=== PATIENT | male | born 1995 | race Hispanic/Latino ===

== ENCOUNTER 2023-01-29 13:56 | Inpatient (IN) | payer OTHER ==
[~2023-01-29] VITALS: Ht 180.3 cm; Wt 119.5 kg
[2023-01-29] MEDS ORDERED: CEFTRIAXONE 500MG VIAL IM SCH (14:30)
[2023-01-29] MEDS ORDERED: DOXYCYCLINE HYCLATE 100 MG TABLET PO SCH (14:30)
[2023-01-29] MEDS ORDERED: ACETAMINOPHEN 500 MG TABLET PO ONE (14:30)
[2023-01-29] MEDS ORDERED: 0.9%NACL 1000ML 1,000 ML IV SCH (14:30)
[2023-01-29 14:59] LABS: BASOPHILS % (AUTO) 0.3 % (0.0-5.0); EOSINOPHILS % (AUTO) 0.2 % (0.0-8.0); HEMATOCRIT 45.6 % (42-54); LYMPHOCYTES % (AUTO) 10.7 % (21.0-51.0); MEAN CORPUSCULAR HEMOGLOBIN 28.1 pg (27.0-33.0); MEAN CORPUSCULAR HGB CONC 33.1 g/dL (32.0-36.0); MEAN CORPUSCULAR VOLUME 84.8 fL (79-99); MONOCYTES % (AUTO) 7.4 % (3.0-13.0); NEUTROPHILS % (AUTO) 80.6 % (40.0-77.0); PLATELET COUNT (AUTO) 377 K/uL (130-400); RED BLOOD CELL COUNT(AUTO) 5.38 MIL/uL (4.50-6.20); RED CELL DISTRIBUTION WIDTH 13.1 % (11.0-15.5); WHITE BLOOD COUNT (AUTO) 18.4 K/uL (4.8-10.8)
[2023-01-29] MEDS ORDERED: MORPHINE 4 MG SYG IVP ONE (15:00)
[2023-01-29] MEDS ORDERED: ONDANSETRON ODT 4MG TAB SL ONE (15:00)
[2023-01-29] MEDS ORDERED: KETOROLAC 30MG VIAL (30MG/ML) IVP ONE (15:00)
[2023-01-29 15:10] LABS: CREATININE 1.1 mg/dL (0.5-1.5); POTASSIUM 3.3 mmol/L (3.5-5.1)
[2023-01-29 15:15] LABS: ALBUMIN 3.1 g/dL (3.5-5.0); APPEARANCE,URINE TURBID (CLEAR); BILIRUBIN,URINE NEGATIVE (NEGATIVE); COLOR,URINE YELLOW (YELLOW); GLUCOSE, URINE (UA) NEGATIVE (NEGATIVE); KETONES,URINE 5 mg/dL (NEGATIVE); LEUKOCYTE ESTERASE ,URINE 500 Leu/uL (NEGATIVE); NITRATE,URINE NEGATIVE (NEGATIVE); OCCULT BLOOD,URINE SMALL (NEGATIVE); PROTEIN,URINE 50 mg/dL (NEGATIVE); TOTAL PROTEIN, SERUM 9.2 g/dL (6.0-8.3)
[2023-01-29 15:50] LABS: BACTERIA,URINE FEW /HPF (None Seen); MUCUS,URINE MOD LPF (None Seen); SQUAMOUS EPITHELIAL CELL,UR FEW /HPF (0-2); WBC,URINE 51-100 /HPF (0-1)
[2023-01-29] MEDS ORDERED: [UNRECOGNIZED DRUG - OTHER] IV ONE (16:30)
[2023-01-29 16:51] LABS: INR 1.07 (0.85-1.15); PROTHROMBIN TIME 11.6 SEC (9.6-11.6)
[2023-01-29 16:53] LABS: PARTIAL THROMBOPLASTIN TIME 36.7 SEC (26.3-35.5)
[2023-01-29] MEDS ORDERED: KETOROLAC 15MG/ML VIAL (15MG/ML) IV PRN (17:00)
[2023-01-29] MEDS ORDERED: ACETAMINOPHEN 500 MG TABLET PO PRN (17:00)
[2023-01-29] MEDS ORDERED: ONDANSETRON 4MG INJ IVP PRN (17:00)
[2023-01-29] MEDS ORDERED: CEFTRIAXONE 1G VIAL IVPB SCH (17:00)
[2023-01-29] MEDS ORDERED: MORPHINE 2 MG SYG IVP PRN (17:00)
[2023-01-29] MEDS ORDERED: KCL 20 MEQ ERTAB PO ONE (17:00)
[2023-01-29 17:16] LABS: MAGNESIUM 2.2 mg/dL (1.80-2.40)
[2023-01-29] MEDS: PANTOPRAZOLE 40 MG/VIAL IVP SCH (17:19)
[2023-01-29] MEDS: MEROPENEM 1 GM VIAL IVPB SCH (18:06)
[2023-01-29 18:26] LABS: BASOPHILS % (AUTO) 0.3 % (0.0-5.0); EOSINOPHILS % (AUTO) 0.6 % (0.0-8.0); HEMATOCRIT 37.3 % (42-54); LYMPHOCYTES % (AUTO) 15.7 % (21.0-51.0); MEAN CORPUSCULAR HEMOGLOBIN 28.4 pg (27.0-33.0); MEAN CORPUSCULAR VOLUME 86.1 fL (79-99); MONOCYTES % (AUTO) 11.6 % (3.0-13.0); NEUTROPHILS % (AUTO) 71.2 % (40.0-77.0); PLATELET COUNT (AUTO) 330 K/uL (130-400); RED BLOOD CELL COUNT(AUTO) 4.33 MIL/uL (4.50-6.20); RED CELL DISTRIBUTION WIDTH 13.1 % (11.0-15.5); WHITE BLOOD COUNT (AUTO) 17.9 K/uL (4.8-10.8)
[2023-01-29] MEDS: 0.9%NACL 1000ML 1,000 ML IV SCH (20:05)
[2023-01-29 20:29] LABS: AMPHET/METH SCREEN,URINE NEGATIVE (NEGATIVE); BARBITURATE SCREEN, URINE NEGATIVE (NEGATIVE); BENZODIAZEPINES SCREEN,URINE NEGATIVE (NEGATIVE); CANNABINOID SCREEN,URINE POSITIVE (NEGATIVE); COCAINE SCREEN,URINE POSITIVE (NEGATIVE); OPIATE SCREEN,URINE NEGATIVE (NEGATIVE); PHENCYCLIDINE SCREEN,URINE NEGATIVE (NEGATIVE)
[2023-01-29] MEDS: NAPROXEN 250 MG TAB PO SCH (21:16)
[2023-01-29] MEDS: DOXYCYCLINE HYCLATE 100 MG TABLET PO SCH (21:16)
[2023-01-29 23:10] VITALS: BP 143/82
[2023-01-30] MEDS: MEROPENEM 1 GM VIAL IVPB SCH ×3 (01:16→16:48)
[2023-01-30 04:00] VITALS: BP 116/76
[2023-01-30 07:00] VITALS: BP 100/74
[2023-01-30] MEDS: DOXYCYCLINE HYCLATE 100 MG TABLET PO SCH ×2 (08:26→20:54)
[2023-01-30 08:47] LABS: BASOPHILS % (AUTO) 0.3 % (0.0-5.0); EOSINOPHILS % (AUTO) 1.2 % (0.0-8.0); LYMPHOCYTES % (AUTO) 11.6 % (21.0-51.0); MEAN CORPUSCULAR HEMOGLOBIN 27.9 pg (27.0-33.0); MEAN CORPUSCULAR HGB CONC 31.2 g/dL (32.0-36.0); MEAN CORPUSCULAR VOLUME 89.6 fL (79-99); MONOCYTES % (AUTO) 6.5 % (3.0-13.0); NEUTROPHILS % (AUTO) 79.6 % (40.0-77.0); PLATELET COUNT (AUTO) 307 K/uL (130-400); RED BLOOD CELL COUNT(AUTO) 4.69 MIL/uL (4.50-6.20); RED CELL DISTRIBUTION WIDTH 13.2 % (11.0-15.5); WHITE BLOOD COUNT (AUTO) 15.1 K/uL (4.8-10.8)
[2023-01-30 09:17] LABS: ALBUMIN 2.4 g/dL (3.5-5.0); MAGNESIUM 2.2 mg/dL (1.80-2.40); POTASSIUM 3.8 mmol/L (3.5-5.1); TOTAL PROTEIN, SERUM 7.4 g/dL (6.0-8.3)
[2023-01-30] MEDS: NAPROXEN 250 MG TAB PO SCH ×2 (10:58→20:54)
[2023-01-30 11:00] VITALS: BP 118/76
[2023-01-30 11:49] LABS: RAPID PLASMA REAGIN REACTIVE (NONREACTIVE)
[2023-01-30 12:15] LABS: RAPID PLASMA REAGIN TITER REACTIVE >1:16 (NONREACTIVE)
[2023-01-30 14:15] LABS: HEPATITIS A IGM ANTIBODY Non-Reactive (Nonreactive); HEPATITIS B CORE IGM ANTIBODY Non-Reactive (Negative); HEPATITIS B SURFACE ANTIGEN Non-Reactive (Nonreactive); HEPATITIS C ANTIBODY Non-Reactive (Nonreactive)
[2023-01-30] MEDS: 0.9%NACL 1000ML 1,000 ML IV SCH ×2 (15:58→19:58)
[2023-01-30 16:00] VITALS: BP 104/64
[2023-01-30] MEDS: PANTOPRAZOLE 40 MG/VIAL IVP SCH (16:48)
[2023-01-30 19:37] VITALS: BP 125/77
[2023-01-30 23:55] VITALS: BP 132/59
[2023-01-31] MEDS: MEROPENEM 1 GM VIAL IVPB SCH ×2 (02:08→09:21)
[2023-01-31 03:54] LABS: BASOPHILS % (AUTO) 0.3 % (0.0-5.0); EOSINOPHILS % (AUTO) 3.4 % (0.0-8.0); HEMATOCRIT 36.5 % (42-54); LYMPHOCYTES % (AUTO) 24.9 % (21.0-51.0); MEAN CORPUSCULAR HEMOGLOBIN 27.9 pg (27.0-33.0); MEAN CORPUSCULAR HGB CONC 31.8 g/dL (32.0-36.0); MEAN CORPUSCULAR VOLUME 87.7 fL (79-99); MONOCYTES % (AUTO) 9.1 % (3.0-13.0); NEUTROPHILS % (AUTO) 61.7 % (40.0-77.0); PLATELET COUNT (AUTO) 315 K/uL (130-400); RED BLOOD CELL COUNT(AUTO) 4.16 MIL/uL (4.50-6.20); RED CELL DISTRIBUTION WIDTH 13.2 % (11.0-15.5); WHITE BLOOD COUNT (AUTO) 10.1 K/uL (4.8-10.8)
[2023-01-31 04:33] VITALS: BP 128/63
[2023-01-31 05:03] LABS: POTASSIUM 4.1 mmol/L (3.5-5.1)
[2023-01-31 05:06] LABS: TOTAL PROTEIN, SERUM 6.4 g/dL (6.0-8.3)
[2023-01-31 08:24] VITALS: BP 120/75
[2023-01-31] MEDS: 0.9%NACL 1000ML 1,000 ML IV SCH (08:50)
[2023-01-31] MEDS: DOXYCYCLINE HYCLATE 100 MG TABLET PO SCH ×2 (09:20→21:45)
[2023-01-31] MEDS: NAPROXEN 250 MG TAB PO SCH ×2 (09:21→21:45)
[2023-01-31 12:30] VITALS: BP 124/68
[2023-01-31] MEDS: CEFTRIAXONE 1G VIAL IVPB SCH (15:19)
[2023-01-31 16:09] VITALS: BP 114/77
[2023-01-31] MEDS: PANTOPRAZOLE 40 MG/VIAL IVP SCH (16:29)
[2023-01-31] MEDS ORDERED: 0.9%NACL 10ML VIAL IV SCH (17:00)
[2023-01-31 19:40] VITALS: BP 135/76
[2023-02-01 00:18] VITALS: BP 117/65
[2023-02-01 03:58] LABS: HEMATOCRIT 37.4 % (42-54); MEAN CORPUSCULAR HEMOGLOBIN 27.8 pg (27.0-33.0); MEAN CORPUSCULAR HGB CONC 31.6 g/dL (32.0-36.0); MEAN CORPUSCULAR VOLUME 88.2 fL (79-99); RED BLOOD CELL COUNT(AUTO) 4.24 MIL/uL (4.50-6.20); RED CELL DISTRIBUTION WIDTH 13.2 % (11.0-15.5); WHITE BLOOD COUNT (AUTO) 8.9 K/uL (4.8-10.8)
[2023-02-01 04:21] LABS: ALBUMIN 2.1 g/dL (3.5-5.0); POTASSIUM 3.8 mmol/L (3.5-5.1); TOTAL PROTEIN, SERUM 6.6 g/dL (6.0-8.3)
[2023-02-01 04:55] VITALS: BP 109/52
[2023-02-01] MEDS: NAPROXEN 250 MG TAB PO SCH ×2 (08:13→20:12)
[2023-02-01] MEDS: DOXYCYCLINE HYCLATE 100 MG TABLET PO SCH ×2 (08:13→20:12)
[2023-02-01 08:41] VITALS: BP 114/77
[2023-02-01 12:33] VITALS: BP 126/75
[2023-02-01] MEDS: CEFTRIAXONE 1G VIAL IVPB SCH (14:54)
[2023-02-01 16:50] VITALS: BP 113/84
[2023-02-01] MEDS: PANTOPRAZOLE 40 MG/VIAL IVP SCH (17:14)
[2023-02-01 19:52] VITALS: BP 142/84
[2023-02-01] MEDS: HEPARIN 5,000 UNIT VIAL SQ SCH (20:18)
[2023-02-02 00:06] VITALS: BP 114/67
[2023-02-02 03:45] LABS: HEMATOCRIT 39.6 % (42-54); MEAN CORPUSCULAR HEMOGLOBIN 27.9 pg (27.0-33.0); MEAN CORPUSCULAR HGB CONC 31.8 g/dL (32.0-36.0); MEAN CORPUSCULAR VOLUME 87.8 fL (79-99); RED BLOOD CELL COUNT(AUTO) 4.51 MIL/uL (4.50-6.20); RED CELL DISTRIBUTION WIDTH 13.2 % (11.0-15.5); WHITE BLOOD COUNT (AUTO) 7.9 K/uL (4.8-10.8)
[2023-02-02 04:00] VITALS: BP 112/68
[2023-02-02 04:08] LABS: ALBUMIN 2.2 g/dL (3.5-5.0); CREATININE 0.9 mg/dL (0.5-1.5); MAGNESIUM 1.9 mg/dL (1.80-2.40); POTASSIUM 4.4 mmol/L (3.5-5.1)
[2023-02-02] MEDS: NAPROXEN 250 MG TAB PO SCH (08:20)
[2023-02-02] MEDS: DOXYCYCLINE HYCLATE 100 MG TABLET PO SCH (08:20)
[2023-02-02] MEDS: HEPARIN 5,000 UNIT VIAL SQ SCH (08:21)
[2023-02-02 08:30] VITALS: BP 131/79
[2023-02-02 12:01] VITALS: BP 125/64
[2023-02-02] MEDS ORDERED: PENICILLIN G BENZATHINE LA 1.2 MILUNITS/2 ML SYG IM SCH (14:00)
[2023-02-02] MEDS: CEFTRIAXONE 1G VIAL IVPB SCH (14:07)
[2023-02-02] MEDS ORDERED: PENICILLIN G POTASSIUM 5,000,000 UNIT VIAL IV SCH (14:30)
== END 2023-02-02 16:00 | disposition left against medical advice (07) | DRG 872 ==
LOC: EDH 13:56 → EDHIP 13:57 → 2AH 23:19
PROVIDERS: ADMIT Internal Medicine; ATTEND Internal Medicine
DX: A41.9 Sepsis, unspecified organism (principal); E87.1 Hypo-osmolality and hyponatremia; N39.0 Urinary tract infection, site not specified; Z20.822 Contact with and (suspected) exposure to COVID-19; R65.20 Severe sepsis without septic shock; E86.0 Dehydration; N45.3 Epididymo-orchitis; A56.19 Other chlamydial genitourinary infection; E86.1 Hypovolemia; E87.6 Hypokalemia; F12.90 Cannabis use, unspecified, uncomplicated; F17.200 Nicotine dependence, unspecified, uncomplicated
CPT/HCPCS: 36415; 71045; 76770; 76870; 80048; 80053; 80074; 80305; 81001; 83605; 83735; 84145; 85025; 85027; 85610; 85651; 85730; 86140; 86592; 86701; 86780; 87040; 87088; 87390; 87486; 87635; 87797; 87804; 93005; C9113; C9803; G0378; J0561; J0696; J1644; J1885; J2185; J2270; J2540; J7030